=== PATIENT | female | born 1995 | race Caucasian/White ===

== ENCOUNTER 2021-11-11 01:54 | Emergency (ER) | payer BC ==
[~2021-11-11] VITALS: Ht 177.8 cm; Wt 90.0 kg
[~2021-11-11 01:54] MED LIST: ARIP2TAB3 PO; CITA20TA6 PO; CYCL10TA19 PO; HYDR25TA PO; LAMO25TA9 PO; TRAM50TA PO
--- NOTE | 2021-11-11 01:56 | PHYS DOC ---
Past Medical History Additional Past Medical Histor: borderline Past Surgical History: No Surgical History Smoking Status: Never Smoker Alcohol Use: None General Adult HPI: HPI: Patient is a 26 year old female who presents with bilateral ear pain. She has had fevers and chills. Symptoms actually began last week. She reports that she was admitted overnight at [facility] on Thursday night. She was given IV antibiotics, she underwent a CT scan, and it sounds like she had head and mastoid imaging done, and she describes what sounds like mastoiditis is being found. She was subsequently discharged yesterday, sent home with Augmentin and antibiotic eardrops. She failed to mention throughout the initial discussion regarding HPI, physical exam, and only mentioned at the end that she also tested positive for Covid yesterday. She presumed that it was persistently positive because she had Covid at the very beginning of September. However her fevers and chills symptoms began within the last week, thus making it more likely a new infection. She reports that she is taking the antibiotics as directed. She has taken Tylenol intermittently, though her last visit Tylenol was around 8 PM last night. She refuses to take Tylenol or ibuprofen here. She reports that she still is having difficulty hearing out of her ears, and she reports that she is still having pain. She reports that she is upset because another CAT scan was not performed [facility] I asked her why she did not return to [facility], and she reports that she was "not impressed with the care there." I explained that we do not have any ENT services here at this hospital, and I asked her if she was given outpatient ENT referral. She skirts this question, and reports that it "took 3 hours for the ENT doctor to even come into my room." She reportedly has appoint with a new primary care physician this week. She denies cough, dyspnea, chest pain. She reports one episode of nausea and vomiting. No persistent vomiting. No abdominal pain reported. Review of Systems: Review of Systems: Constitutional: fever and chills. [] Eyes: Denies change in visual acuity. [] HENT: Nasal congestion, bilateral otalgia. Denies sore throat. Respiratory: Denies cough or shortness of breath. [] Cardiovascular: Denies chest pain GI: Denies abdominal pain. 1 episode of nausea and vomiting. Musculoskeletal: Denies back pain or joint pain. [] Integument: Denies rash. [] Neurologic: Denies headache, focal weakness or sensory changes. [] Psychiatric: Chronic mood disorder. Heart Score: C/O Chest Pain: No Risk Factors: Risk Factors: DM, Current or recent (<one month) smoker, HTN, HLP, family histo ry of CAD, obesity. Risk Scores: Score 0 - 3: 2.5% MACE over next 6 weeks - Discharge Home Score 4 - 6: 20.3% MACE over next 6 weeks - Admit for Clinical Observation Score 7 - 10: 72.7% MACE over next 6 weeks - Early Invasive Strategies Allergies: Allergies: Allergies Coded Allergies Type Severity Reaction Last Updated Verified pamabrom Allergy Intermediate Hives 03/22/21 Yes Physical Exam: PE: Constitutional: Well developed, well nourished, no acute distress, non-toxic appearance. [] HENT: Normocephalic, atraumatic, oropharynx is patent and clear, mucous membranes are moist. Nares are patent clear without rhinorrhea or epistaxis. No facial swelling or erythema. Bilateral ear canals are mildly edematous, mild excoriation, findings are most consistent with bilateral otitis externa. Bilateral pinnae are unremarkable in appearance, no tenderness with manipulation of the bilateral pinna. No evidence of malignant otitis externa. TMs are visible, and bilateral tympanic membrane erythema is noted. There is no active or purulent otorrhea. Mastoids are nontender, there is no edema or swelling over the mastoids bilaterally. No palpable crepitus or subcutaneous emphysema. Eyes: PERRL, EOMI, conjunctiva normal, no discharge. [] Neck: Normal range of motion, no tenderness, supple, no stridor. No abnormal adenopathy, trachea midline, no meningismus, neck is nontender. Cardiovascular: Tachycardic, regular, rate in the low 100s. Warm and well- perfused appearing. +2 radial pulses bilaterally. Lungs & Thorax: Bilateral breath sounds clear to auscultation, no rales, rhonchi or wheezes. Skin: Warm, dry, no erythema, no rash. [] Extremities: No limb deformity or edema noted Neurologic: She is awake, alert, oriented x3, no facial asymmetry, gross normal motor function, ambulatory with a steady and nonantalgic gait, no ataxia, speech is fluent. Psychologic: Affect is flat, bizarre EKG: EKG: [] Radiology/Procedures: Radiology/Procedures: [] Course & Med Decision Making: Course & Med Decision Making I offered to give the patient a dose of Tylenol or ibuprofen here, and she refuses. Temperature is 100.2. Minimal tachycardia, though not out of proportion for fever. She manifests no evidence of distress or hypoxia. I explained that her COVID-19 positive status is likely new, as she is clearly symptomatic with it and had a recently positive test, so she should self isolate as appropriate. She reports that she will do this. I told her to continue taking antibiotics as directed until gone. I explained that it sounds like her medical management was excellent and appropriate and met standard of care. T here is no indication for any emergency intervention, exams, imaging at this time based on current clinical presentation. I gave her information for outpatient ENT services at [facility]. I told her to contact them later today to discuss follow-up. She should also keep her scheduled appointment with her primary care physician. I did prescribe Zofran for discharge. She may take Tyl enol and ibuprofen as needed at home for pain and fever. Return precautions are given. Shortly after the patient was discharged, the patient's mother and father demanded to talk to the charge nurse. The nurse caring for the patient in the ER and the charge nurse went out to talk to the patient's parents. The parents reportedly stated to the nurses that they believe that the offer for being given Tylenol was "ridiculous." The patient reportedly told the nurses that they felt that the patient "was not heard." The patient then reportedly told the nursing staff that she did not want to talk about it anymore and then they left. Dragon Disclaimer: Callie Disclaimer: This electronic medical record was generated, in whole or in part, using a voice recognition dictation system. Departure Departure Impression: Primary Impression: Bilateral otitis media Additional Impressions: Bilateral otitis externa COVID-19 Disposition: HOME / SELF CARE / HOMELESS Condition: STABLE Referrals: NO PCP (PCP) Patient Instructions: Otitis Externa, Otitis Media, Adult Additional Instructions: ,,Take the full course of antibiotics you are given. Continue taking the drops as directed. You may take [id number] Tylenol or ibuprofen as needed for fever or pain control. Please follow-up with the ENT physician that you were given. Please keep your scheduled appointment with your new primary care physician as well return for any acute emergency condition, such as acute injury, if you develop uncontrolled vomiting, dehydration, or other concerns. Dr. Juan A MD is an ENT doctor at [facility]. Office phone number is [phone]. Scripts Ondansetron Hcl (ONDANSETRON HCL) 4 Mg Tablet 1 TAB PO PRN Q8 HR for vomiting, #20 TAB 1 Refill Prov: VISH DOUGLAS DO 11/11/21 VISH DOUGLAS DO Nov 11, 2021 01:56
[2021-11-11 02:07] VITALS: BP 140/104
[2021-11-11] MEDS ORDERED: ONDA-84 PO (02:10)
== END 2021-11-11 02:31 | disposition home or self-care (01) ==
LOC: ER 01:54
DX: U07.1 COVID-19 (principal); H60.93 Unspecified otitis externa, bilateral; H66.93 Otitis media, unspecified, bilateral; Z88.8 Allergy status to other drugs, medicaments and biological substances
CPT/HCPCS: 99283